=== PATIENT | female | born 1960 | race Caucasian/White ===

== ENCOUNTER 2016-10-13 07:07 | Emergency (ER) | payer BC ==
[2016-10-13 07:23] VITALS: BP 135/79
[2016-10-13] MEDS ORDERED: Cefadroxil CAP* 500 MG PO ONE (07:28)
--- NOTE | 2016-10-13 07:37 | UC ---
Throat Pain/Nasal Antonino HPI - HPI Summary HPI Summary: URI 3 weeks ago. Cough resolved, but sinus congestion/pressure/pain has steadily worsened. Now with terrible headache over eyes, photophobia, post- nasal drip, sinus pressure causing her teeth to hurt. She has had a few sinusitis episodes in past, not common for her. No recent fever. No vomiting, but poor appetite due to pain. - History of Current Complaint Chief Complaint: UCRespiratory Stated Complaint: SINUSES Time Seen by Provider: 10/13/16 07:12 Hx Obtained From: Patient Hx Last Menstrual Period: 2010 Onset/Duration: Gradual Onset, Lasting Weeks - 3 Severity: Severe Cough: None Associated Signs & Symptoms: Positive: Sinus Discomfort, Nasal Discharge. Negative: Fever, Vomiting, Rash - Epiglottits Risk Factors Epiglottis Risk Factors: Negative - Allergies/Home Medications Allergies/Adverse Reactions: Allergies Allergy/AdvReac Type Severity Reaction Status Date / Time levaquin Allergy Abdominal Uncoded 10/13/16 07:12 Pain rifampin Allergy See Comment Uncoded 10/13/16 07:12 Home Medications: Home Medications ALPRAZolam TAB* [Xanax TAB*] 0.25 mg PO BID PRN 10/13/16 [History Confirmed 04/21] Cholecalciferol [Vitamin D] 1,000 unit PO DAILY 10/13/16 [History Confirmed 04/21] Diclofenac 1% GEL (NF) [Voltaren 1% GEL (NF)] 1 applic TOPICAL ONCE PRN [History Confirmed 10/13/16] Diltiazem CD CAP* [Cardizem CD CAP*] 180 mg PO DAILY 10/13/16 [History Confirmed 10/13/16] Ibuprofen [Advil] 400 mg PO ONCE PRN 10/13/16 [History Confirmed 10/13/16] Lidocaine PATCH 5%* [Lidoderm 5% Patch*] 1 patch TRANSDERM DAILY PRN 10/13/16 [ History Confirmed 10/13/16] Omeprazole CAP* [Prilosec CAP* 20 MG] 40 mg PO DAILY 10/13/16 [History Confirmed 10/13/16] Phenylephrine-Chlorpheniramine [Shivani-[place] Plus Cold &] 1 cap PO ONCE PRN 04/21 [History Confirmed 10/13/16] PMH/Surg Hx/FS Hx/Imm Hx Cardiovascular History Of: Reports: Cardiac Disorders - PACS Comment Only: Hypertension - toprol - Surgical History Surgical History: Yes Surgery Procedure, Year, and Place: t/a, c section, lap rocky, C456 disc-ectomy and fusion. hysterectomy - Family History Known Family History: Negative: Respiratory Disease - Social History Occupation: Employed Full-time - nurse Lives: With Family Alcohol Use: Occasionally Substance Use Type: None Smoking Status (MU): Never Smoked Tobacco Review of Systems Constitutional: Negative Skin: Negative Eyes: Negative ENT: Nasal Discharge, Other - sinus pain Respiratory: Negative Cardiovascular: Negative Gastrointestinal: Negative Genitourinary: Negative Motor: Negative Neurovascular: Negative Musculoskeletal: Negative Neurological: Negative Psychological: Negative All Other Systems Reviewed And Are Negative: Yes Physical Exam Triage Information Reviewed: Yes Appearance: Well-Appearing, Well-Nourished, Pain Distress - standing in dark room, looks very uncomfortable Vital Signs: Initial Vital Signs Temp 98.3 F 10/13/16 07:18 Pulse 61 10/13/16 07:18 Resp 18 10/13/16 07:18 BP 135/79 10/13/16 07:18 Pulse Ox 99 10/13/16 07:18 Vital Signs Reviewed: Yes Eye Exam: Normal Eyes: Positive: Conjunctiva Clear ENT: Positive: Hearing grossly normal, Pharynx normal, TMs normal. Negative: Nasal congestion, Nasal drainage, Tonsillar swelling, Tonsillar exudate, Trismus , Muffled/hoarse voice Neck exam: Normal Neck: Positive: Supple Respiratory: Positive: No respiratory distress, No accessory muscle use Cardiovascular Exam: Normal Abdominal Exam: Normal Musculoskeletal Exam: Normal Neurological Exam: Normal Psychological Exam: Normal Skin Exam: Normal Throat Pain/Nasal Course/Dx - Differential Dx/Diagnosis Differential Diagnosis/HQI/PQRI: Sinusitis, URI Provider Diagnoses: sinusitis Discharge - Discharge Plan Condition: Stable Disposition: HOME Prescriptions: Cefadroxil CAP* [Duricef CAP*] 500 mg PO BID #26 cap Fluconazole 150 MG (NF) [Diflucan 150 mg (NF)] 150 mg PO ONCE PRN #2 tab PRN Reason: vaginal itching Patient Education Materials: Sinusitis (ED) Referrals: Devin De Santiago MD [Primary Care Provider] -
== END 2016-10-13 07:48 | disposition home or self-care (01) ==
LOC: UCCORT 07:07
DX: J32.9 Chronic sinusitis, unspecified (principal); I49.1 Atrial premature depolarization; I10 Essential (primary) hypertension; Z90.49 Acquired absence of other specified parts of digestive tract
CPT/HCPCS: 99212; A9270-GY; G0463